=== PATIENT | female | born 1985 | race Hispanic/Latino ===

== ENCOUNTER 2017-06-19 17:19 | Emergency (ER) | payer OTHER ==
[2017-06-19 17:19] VITALS: BMI 18.8
[2017-06-19 17:38] VITALS: BP 136/86; RESP 18; TEMP 98.3; O2SAT 100
[2017-06-19] MEDS ORDERED: Albuterol-Ipratrop 3 mg / 0.5 (3 ml) UD ONE (17:52)
--- NOTE | 2017-06-19 17:57 | ED PDOC ---
HPI: Chest Pain Time Seen by Provider: 06/19/17 17:31 Chief Complaint (Nursing): Chest Pain Chief Complaint (Provider): Chest Pain History Per: Patient Additional Complaint(s): 32 yo female,PMH of Anxiety, Depression and gastritis, presents to c/o chest pain x 1 hour. Pt reports she can not talk and has upper extremity numbness. Pt communicating all by personal lines underwriter. Pt began initially by writing she will "billie for mistreatment." Pt went onto sa that se needed paper and a pen immediately and had to wait 8 minutes for paper, continued to personal lines underwriter how she was upset. Took some time to be redirected by personal lines underwriter. Pt finally began to answer medical questions in regards to her condition. Pt reports she thinks she might either be having a panic attack or stroke because she is jittery, has palpitations, SOB and cant speak. Pt writing all information, will not speak. Pt has moments where she cant personal lines underwriter and starts screaming "because I can't breath." Drill Setup Operator spoke to Pt about her symptoms and physical exam findings, and Pt became more calm after exam. Pt able to speak P 154 upon arrival on monitor, 100 on re-eval POX: 100% on RA. Past Medical History Reviewed: Nursing Documentation, Vital Signs Vital Signs: Last Vital Signs Temp 98.3 F 06/19/17 17:37 Pulse 154 H 06/19/17 17:46 Resp 18 06/19/17 17:37 BP 136/86 06/19/17 17:37 Pulse Ox 100 06/19/17 19:46 - Medical History PMH: Anxiety, Bronchitis (DID NOT TAKE Z FRANCA PRESCRIBED), Depression, Gastritis , Chronic Kidney Disease - Surgical History Surgical History: Endoscopy - Family History Family History: States: Unknown Family Hx - Living Arrangements Living Arrangements: With Family - Social History Current smoker - smoking cessation education provided: No Alcohol: None Drugs: Denies - Immunization History Hx Tetanus Toxoid Vaccination: Yes - Home Medications Home Medications: Ambulatory Orders Medication Instructions Recorded Ascorbic Acid [Vitamin C 500 mg 500 mg PO DAILY 08/06/16 Tab] Bismuth Subsalicylate [kaopECTATE] 262 mg PO ONCE PRN 08/06/16 Ergocalciferol [Drisdol] 50,000 iu PO QWK 08/06/16 Sertraline [Zoloft] 100 mg PO DAILY 08/06/16 Alprazolam [Xanax] 0.25 mg PO HS #5 tab 06/19/17 - Allergies Allergies/Adverse Reactions: Allergies Allergy/AdvReac Type Severity Reaction Status Date / Time No Known Allergies Allergy Verified 08/06/16 09:10 ALICE Risk Score for UA/NSTEMI - ALICE Risk Score Age > 64: NO 3 or more CAD Risk Factors: NO Known CAD (Stenosis greater than 50%): NO Aspirin use in past 7 days: NO Severe Angina: NO EKG ST changes greater than 0.5mm: NO Positive Cardiac Marker: NO ALICE Score: 0 Risk %: 5% Curb-65 Severity Score - CURB-65 Severity Score Confusion: No Bun >19mg/dl (>7mmol/L): No Respiratory Rate greater than/equal to 30: No Systolic BP <90 or Diastolic BP less than/equal 60mmHg: No Age >64: No Curb-65 Score: 0 Percentage 30-day mortality: 0.6% Wells Criteria for PE - Wells Criteria for Pulmonary Embolism Clinical Signs and Symptoms of DVT: No P.E is #1 Diagnosis, or Equally Likely: No Heart Rate >100: Yes Immobilization at least 3 days;Surgery previous 4 weeks: No Previous, objectively diagnosed PE or DVT: No Hemoptysis: No Malignancy w/treatment within 6 months, or palliative: No Total Score: 1.5 Review of Systems ROS Statement: Except As Marked, All Systems Reviewed And Found Negative Neurological: Positive for: Numbness, Dizziness Psych: Positive for: Anxiety Physical Exam - Reviewed Nursing Documentation Reviewed: Yes Vital Signs Reviewed: Yes - Physical Exam Appears: Positive for: Non-toxic, No Acute Distress, Uncomfortable Head Exam: Positive for: ATRAUMATIC, NORMAL INSPECTION, NORMOCEPHALIC Skin: Positive for: Normal Color, Warm, DRY Eye Exam: Positive for: EOMI, Normal appearance, PERRL ENT: Positive for: Normal ENT Inspection Neck: Positive for: Normal, Painless ROM Cardiovascular/Chest: Positive for: Regular Rate, Rhythm Respiratory: Positive for: CNT, Normal Breath Sounds Gastrointestinal/Abdominal: Positive for: Normal Exam, Bowel Sounds, Soft Back: Positive for: Normal Inspection Extremity: Positive for: Normal ROM Neurologic/Psych: Positive for: Alert, Oriented, Other (anxious) - Laboratory Results Result Diagrams: 06/19/17 18:00 06/19/17 18:00 - ECG O2 Sat by Pulse Oximetry: 100 Medical Decision Making Medical Decision Making: Pt appears extremely anxious. Pt calmed by personal lines underwriter. Long discussion had about panic attacks and thier symptoms EKG interpreted and cleared by ED MD Pt on monitoring and evaluation advisor, vitals discussed. Pt bringing to speak during exam, reports that she can't breath however. POX 100 % on RA Pt administered duo neb and Ativan 1 mg IV Pt tearful and shaking. Drill Setup Operator remained at bedside and on re-eval. pt talking, appears more calm. P: 88 BP: 112/82 POX: 100% on RA Pt admits she has been monitoring her BP multiple times a day and usually it is 90/60 ; however today it was 130/80. Pt concerned bc she has a strong family history of stroke and a friend of hers recently had one. Pt educated on all results and demonstrated full understanding Pt greatly improved on final eval. Pt reports a history of panic attacks; however, "never this bad." Pt offered crisis eval; however, declined. asking to go home at this time Disposition - Clinical Impression Clinical Impression: Panic attack - Patient ED Disposition Is Patient to be Admitted: No - Disposition Disposition: Routine/Home Disposition Time: 19:58 Condition: STABLE Prescriptions: Alprazolam [Xanax] 0.25 mg PO HS #5 tab Instructions: Panic Attack (ED) Forms: [facility] (Korean) - POA Present On Arrival: None
[2017-06-19] MEDS ORDERED: Sodium Chloride 0.9% 1,000 ML IV STA (18:01)
[2017-06-19] MEDS ORDERED: Albuterol-Ipratrop 3 mg / 0.5 (3 ml) UD INH STA (18:07)
[2017-06-19 18:12] LABS: BASO # 0.1 K/uL (0.0-0.2); BASO % 0.9 % (0.0-2.0); EOS # 0.2 K/uL (0.0-0.7); EOS % 2.7 % (0.0-4.0); HEMATOCRIT 46.7 % (34.0-47.0); LYMPH # 1.9 K/uL (1.0-4.3); LYMPH % 28.6 % (20.0-40.0); MEAN CELL VOLUME 94.9 fl (81.0-99.0); MEAN CORPUSCULAR HEMOGLOBIN 31.8 pg (27.0-31.0); MEAN CORPUSCULAR HGB CONC 33.5 g/dL (33.0-37.0); MONO # 0.5 K/uL (0.0-0.8); MONO % 7.1 % (0.0-10.0); NEUT % 60.7 % (50.0-75.0); NRBC % 0.2 % (0.0-0.0); RED CELL DISTRIBUTION WIDTH 13.1 % (11.5-14.5); WHITE BLOOD COUNT 6.6 K/uL (4.8-10.8)
[2017-06-19 18:22] LABS: ALKALINE PHOSPHATASE 58 U/L (38-126); ALT/SGPT 33 U/L (9-52); AST/SGOT 23 U/L (14-36); BILIRUBIN,TOTAL 0.4 mg/dl (0.2-1.3); BLOOD UREA NITROGEN 9 mg/dl (7-17); CALCIUM 10.2 mg/dL (8.4-10.2); CARBON DIOXIDE 19 mmol/L (22-30); CHLORIDE 105 mmol/L (98-107); GFR AFRICAN-AMERICAN > 60; GLUCOSE,RANDOM 108 mg/dL (65-105); POTASSIUM 3.4 MMOL/L (3.6-5.0); SODIUM 140 mmol/l (132-148); TOTAL PROTEIN 8.3 G/DL (6.3-8.2)
[2017-06-19 18:27] LABS: PARTIAL THROMBOPLASTIN TIME 29.6 Seconds (25.6-37.1)
[2017-06-19 18:33] LABS: ALB/GLOB RATIO 1.6 (1.0-2.1)
[2017-06-19 18:53] LABS: THYROID STIMULATING HORMONE 3.76 mIU/ML (0.46-4.68)
[2017-06-19 19:02] VITALS: PULSE 154
--- NOTE | 2017-06-20 08:00 | CT ---
PROCEDURE: CT HEAD WITHOUT CONTRAST. HISTORY: numbness UE b/l, headache COMPARISON: None available. TECHNIQUE: Axial computed tomography images were obtained through the head/brain without intravenous contrast. Radiation dose: Total exam DLP = 876.43 mGy-cm. This CT exam was performed using one or more of the following dose reduction techniques: Automated exposure control, adjustment of the mA and/or kV according to patient size, and/or use of iterative reconstruction technique. FINDINGS: HEMORRHAGE: No intracranial hemorrhage. BRAIN: No mass effect or edema. Moderate atrophy both frontal lobes. VENTRICLES: Unremarkable. No hydrocephalus. CALVARIUM: Unremarkable. PARANASAL SINUSES: Unremarkable as visualized. No significant inflammatory changes. MASTOID AIR CELLS: Unremarkable as visualized. No inflammatory changes. OTHER FINDINGS: None. IMPRESSION: No acute intracranial abnormalities. No significant findings to account for the clinical presentation. Concordant results (preliminary interpretation) provided by [employer]. Procedure Completed: 19:18 Preliminary ([facility]) Report: Dictated and Authenticated: 19:34. Final Interpretation: 07:58
--- NOTE | 2017-06-20 09:14 | RAD ---
HISTORY: med screening COMPARISON: No prior. FINDINGS: LUNGS: No active pulmonary disease. PLEURA: No significant pleural effusion identified, no pneumothorax apparent. CARDIOVASCULAR: Normal. OSSEOUS STRUCTURES: No significant abnormalities. VISUALIZED UPPER ABDOMEN: Normal. OTHER FINDINGS: None. IMPRESSION: No active disease.
--- NOTE | 2017-06-21 10:07 | CARD ---
APPROVED REPORT EKG Measurement Heart [id number] <Conclusion> Sinus rhythm with short MO Possible Left atrial enlargement Borderline ECG
== END 2017-06-19 20:38 | disposition home or self-care (01) ==
LOC: H.ER 17:19
DX: F41.0 Panic disorder [episodic paroxysmal anxiety] (principal); F32.9 Major depressive disorder, single episode, unspecified; Z82.3 Family history of stroke
CPT/HCPCS: 70450; 71010; 80053; 80324; 80345; 80346; 80349; 80353; 80358; 80361; 81025; 82948; 83992; 84443; 84484; 84702; 85025; 85378; 85610; 85730; 93005; 96374; 99284; J2060; J7040